=== PATIENT | female | born 1940 ===

== ENCOUNTER → 2017-08-01 | Outpatient (CLI) | payer MEDICARE ==
[~2017-08-01] MED LIST: AMLO1TAB95 PO; ASPI-482 PO; ATOR20TA PO; BYSTOLIC20 MG PO; CYCL5TAB PO; ESTR0.5T PO; HYDR-2758 PO; IOHEXOL 180 MG/ML 10 ML VIAL. ONE; LEVO150T PO; MELO7.5T29 PO; MULT-208 PO; OMEP20CA9 PO; VENL150C6 PO; methylPREDNISolone ACETATE 40 MG/ML VIAL. ONE; methylPREDNISolone ACETATE 80 MG/ML VIAL. ONE
--- NOTE | 2017-08-01 22:37 | PAIN ---
DATE OF SERVICE: 08/01/2017 INITIAL CONSULTATION CHIEF COMPLAINT: Low back and left lower extremity pain. HISTORY OF PRESENT ILLNESS: This is a 76-year-old female who presents with history of pain in the low back and left lower extremity for about 2 months now, increasing, not a result of any specific injury or accident that she is aware, but it is increasing with time. The patient had lumbar laminectomy in 2006 with similar symptoms at that time in her left lower extremity, but the patient reports the pain is now somewhat different. The pain has been increasing with activity, standing, walking, better with sitting. It is a constant pain, is throbbing, numbness and tingling sensation as well as radiating into the left posterior gluteus, posterolateral thigh, posterior calf and into the foot, but not into the toes on the left side only. The patient reports no significant pain in the right side, occasional some shooting pain in the right lateral thigh, but mostly just on the left side and in the leg and foot. The patient reports she had MRI scan on 07/05/2017 showing extensive severe multilevel spondylosis and central stenosis, most notably at L4-L5 as well as L3-L4 with near complete obliteration of the thecal sac due to severe facet spurring and posterior disk bulging, severe right neural foraminal stenosis and [id number] left neural foraminal stenosis at L4-L5. At L3-L4 shows severe central stenosis and severe thickening of ligamentum flavum with facet spur and near complete obliteration of the central spinal canal with severe marked central spinal canal stenosis and bilateral subarticular zone stenosis, severe medial right and severe medial left neural foraminal stenosis as well. The patient reports her disability rate from 0-10, 10 being the worst, it is an 8 with family and home responsibilities, recreation, social activity and 0 in other categories. The patient has tried hydrocodone, cyclobenzaprine and Meloxicam, which helped to moderate extent, but not anything that has taken the pain away completely. The patient has had physical therapy as well as chiropractic treatment and doing exercise currently, had some epidural injections many years ago before her surgery, which helped as well. PAST MEDICAL HISTORY: Significant for hypertension, gastroesophageal reflux, hypothyroidism, in 1980 had a melanoma which was excised surgically, and arthritis. PREVIOUS SURGERY: Include partial hysterectomy, bilateral cataract extractions, lumbar laminectomy in 2007, total thyroidectomy, breast reduction and melanoma excision, also appendectomy. CURRENT MEDICATIONS: Include Jos, Lipitor, Flexeril, meloxicam, hydrocodone, multivitamins daily, baby aspirin, Synthroid, estradiol, venlafaxine and Bystolic. ALLERGIES: The patient has no known drug allergies. FAMILY HISTORY: Significant for heart disease, cancers, and stroke. SOCIAL HISTORY: The patient does not smoke, does not drink alcohol, is , lives with her spouse and lives locally in [place], [place] and is currently retired. REVIEW OF SYSTEMS: The patient's review of systems is positive for those items mentioned in history of present illness. All systems are reviewed and otherwise negative. It is complete, full and well documented on the patient's chart. PHYSICAL EXAMINATION: VITAL SIGNS: The patient's blood pressure is 115/66, pulse , respirations 20, temperature 97.9 degrees Fahrenheit. Height is 5 feet 4 inches and weighs 206 pounds. GENERAL: The patient is awake, alert, oriented, appropriate, very pleasant demeanor. HEENT: Shows normocephalic, atraumatic. Extraocular movements are intact and symmetrical. Oral cavity shows mucous membranes moist and pink. Dentition is intact. NECK: Shows anterior throat supple without palpable lymphadenopathy noted. Swallow reflex is symmetrical. CHEST: Shows normal on inspection. Breath sounds are clear to auscultation bilaterally. HEART: Shows S1 and S2 clear. No murmurs auscultated. ABDOMEN: Soft, obese, nontender, nondistended. No palpable organomegaly is noted. No rebound or guarding demonstrated. BACK: Shows spine grossly midline. Normal appearing thoracic kyphosis and mild flattening of lumbar lordotic curvature. There is a well-healed surgical scar in the lumbar distribution. Lumbar paraspinous musculature shows symmetrical on inspection, with palpation shows some moderate tenderness with palpation in the middle and lower distribution of paraspinous muscles bilaterally, but without significant radiation, only diffusely tender without trigger points, no tenderness over the sacrum or sacroiliac regions. The patient shows full rotational motion of lumbar spine, both laterally as well as extension and flexion without significant difficulty. EXTREMITIES: Lower extremities show deep tendon reflexes at 1+ in the patellar and tendo calcaneus tendons and are equal. Motor exam is strong with 5/5 dorsiflexion, extension, quadriceps and hamstring flexion and symmetrical. Peripheral pulses are 1+ posterior tibial and dorsalis pedis pulses. No peripheral edema is noted. No clubbing, cyanosis. Lower extremities are warm and dry to touch, equal in color and appearance. The patient does have positive straight leg raise on the left at about 40 degrees, decreased with knee flexion, but not completely relieved. Right side is negative. Gaenslen's and Tj's maneuvers are negative bilaterally as well. The patient is able to stand, stand on her toes without difficulty or loss of balance and is walking with a normal-appearing gait, does not appear to favor the right or left lower extremity significantly and not using any assistive devices to ambulate on her visit today. IMPRESSION: 1. This is a 76-year-old female with about a 2-month history of increasing pain in low back, left lower extremity in radicular fashion. 2. MRI scan as noted. 3. Hypertension. 4. Arthritis. PLAN: Options were discussed with the patient including conservative medical management, physical therapy, interventional techniques and she would like to pursue interventional techniques and she is currently doing some therapies and exercises on her own. We discussed a lumbar epidural steroid injection in a caudal approach using description as well as anatomical models to describe the procedure. Risks were then discussed including, but not limited to bleeding, infection, possibility of epidural hematoma, subsequent neurologic compromise, dural puncture, headaches, spinal cord and/or nerve damage, side effects of steroid medication and poor results regarding pain control. The patient understands and wished to proceed. The patient will return to clinic in approximately 2 weeks for followup. She was counseled as to return appointment, activity level and side effects to be aware of. DIAGNOSES: Lumbar radiculopathy with lumbar spinal stenosis, degenerative disk disease and post-laminectomy syndrome. PROCEDURE: Lumbar epidural steroid injection, caudal approach. ANESTHETIC: Local anesthetic. DESCRIPTION OF PROCEDURE: Under sterile prep and drape using C-arm fluoroscopic guidance, medication injected, a total of 120 mg of Depo-Medrol plus 10 mL of preservative-free normal saline and 2 mL of Isovue for contrast. CONDITION AT DISCHARGE: Stable. The patient tolerated procedure well, had no complications. OLEGARIO JACKMAN MD DR: NAMRATA/katerin JOB#: [id number] / [id number]
== END | disposition home or self-care (01) ==
LOC: PNCL 09:13
PROVIDERS: ATTEND Anesthesiology
DX: M51.16 Intervertebral disc disorders with radiculopathy, lumbar region (principal); M48.06 Spinal stenosis, lumbar region; M96.1 Postlaminectomy syndrome, not elsewhere classified; I10 Essential (primary) hypertension; M19.91 Primary osteoarthritis, unspecified site; K21.9 Gastro-esophageal reflux disease without esophagitis; E03.9 Hypothyroidism, unspecified; Z98.41 Cataract extraction status, right eye; Z98.42 Cataract extraction status, left eye
CPT/HCPCS: 62323; J1030; J1040

== ENCOUNTER → 2017-08-15 | Outpatient (CLI) | payer MEDICARE ==
[~2017-08-15] MED LIST changes: -IOHEXOL 180 MG/ML 10 ML VIAL. ONE; -methylPREDNISolone ACETATE 40 MG/ML VIAL. ONE; -methylPREDNISolone ACETATE 80 MG/ML VIAL. ONE
--- NOTE | 2017-08-15 10:41 | PAIN ---
DATE OF SERVICE: 08/15/2017 DIAGNOSES: Lumbar radiculopathy with lumbar degenerative disk disease, lumbar spinal stenosis and post-lumbar laminectomy syndrome. HISTORY OF PRESENT ILLNESS: The patient is a 76-year-old female who returns for followup status post caudal approach epidural steroid injection x 1. The patient reports 100% improvement in her low back and leg pain, which she has had mostly on the left side. The patient reports this has almost completely resolved, still had very minor twinges over the past 1-2 days in the left low back and lower extremity. The patient reports it is burning and dull, off and on, very infrequent. The patient reports her pain as 0 on a scale of 10 currently, it is highest as a 4 on a scale of 10 over the last few days. She has been moving some boxes after she had recently moved to a new location and is still unpacking for that, is doing very well. The patient is very pleased to report by the next day after the shot, the pain was almost completely gone and continued to get better. The patient reports no new motor or sensory deficits, no new bowel or bladder incontinence. She is sleeping about 5 hours a night, but the pain does not awaken her from sleep. The patient reports no new changes or other complaints. PHYSICAL EXAMINATION: VITAL SIGNS: The patient's blood pressure 124/63, pulse 63, respirations are 16, temperature is 98.0 degrees Fahrenheit, weight is 206 pounds. GENERAL: The patient is awake, alert, oriented, appropriate, very pleasant demeanor. HEENT: Head shows normocephalic, atraumatic. The patient is wearing eyeglasses. Oral cavity: Mucous membranes moist and pink. Dentition is intact. NECK: Shows anterior throat supple without palpable lymphadenopathy noted. Swallow reflex is symmetrical. CHEST: Shows normal on inspection. Breath sounds are clear to auscultation bilaterally. HEART: Shows S1 and S2 clear. ABDOMEN: Soft, nontender, nondistended. No palpable organomegaly is noted. No rebound or guarding demonstrated. BACK: Shows spine grossly midline. Slight exaggeration of thoracic kyphosis, mild flattening of lumbar lordotic curvature is noted. Lumbar paraspinous musculature shows a well-healed surgical scar in the midline and laterally shows some mild tenderness to palpation but only diffusely and the low lumbar distribution is symmetrical. The patient shows good rotation and motion both laterally as well as extension and flexion without difficulty. EXTREMITIES: Lower extremities showed deep tendon reflexes, 1+ in the patellar and tendo calcaneus tendons. Motor exam is strong with 5/5 dorsiflexion, extension, quadriceps and hamstring flexion. Options were discussed with the patient. The patient's old chart was reviewed as her current medication regimen updated. Current review of systems is updated today as well and we will hold on any further injections as she is doing quite well and is very pleased with the results she has received from her first injection. We discussed that if the pain begins to return to contact us sooner than later, so that the pain does not get to the point it was previously, and the patient will do so. She will continue to increase her activity. We discussed stretching and strengthening exercises as well as continued and consistent activity with walking, standing, change in positions, etc. OLEGARIO JACKMAN MD DR: NAMRATA/katerin JOB#: [id number] / [id number]
== END | disposition home or self-care (01) ==
LOC: PNCL 09:06
PROVIDERS: ATTEND Anesthesiology
DX: M51.16 Intervertebral disc disorders with radiculopathy, lumbar region (principal); M48.06 Spinal stenosis, lumbar region
CPT/HCPCS: G0463

== ENCOUNTER → 2017-08-29 | Outpatient (CLI) | payer MEDICARE ==
[~2017-08-29] MED LIST changes: +IOHEXOL 180 MG/ML 10 ML VIAL. ONE; +methylPREDNISolone ACETATE 40 MG/ML VIAL. ONE; +methylPREDNISolone ACETATE 80 MG/ML VIAL. ONE
--- NOTE | 2017-08-29 09:26 | PAIN ---
DATE OF SERVICE: 08/29/2017 DIAGNOSES: Lumbar radiculopathy with lumbar degenerative disk disease and spinal stenosis and post-lumbar laminectomy syndrome. HISTORY OF PRESENT ILLNESS: The patient is a 76-year-old female who returns for followup status post caudal epidural steroid injection x 1 on 08/01/2017. The patient did very well with near 100% improvement to the point where we postponed any further injections. The patient reports the pain has been returning now over the past week or two in the low back and into the left greater than right lower extremities. The patient reports it is burning, aching, sharp beginning to become more noticeable with some numbness in her toes on the left foot as well as trying to get ahead before it gets worse. The patient reports it is an 8 on a scale of 10, worst is 7 on average, 3 on a scale of 10 at its least and it is 3 today. The patient reports it does not awaken her from sleep. She sleeps 6 hours a night, better with sitting down and lying down, worse with walking and standing, change in positions and ambulating as well as bending and standing at the lumbar spine. The patient reports no new motor or sensory deficits, no new bowel or bladder incontinence or other complaints. She has been increasing her walking as well as her household activities and work duties with greater ease and comfort, but again the pain returning now to a moderate extent in the low back and left leg. PHYSICAL EXAMINATION: VITAL SIGNS: Today, the patient's blood pressure is 136/77, pulse 69, respirations 20, temperature is 98.1 degrees Fahrenheit, weight is 208 pounds. GENERAL: The patient is awake, alert, oriented, appropriate, very pleasant demeanor. HEENT: Head shows normocephalic, atraumatic. Extraocular movements are intact, symmetrical. Oral cavity: Mucous membranes moist and pink. Dentition intact. NECK: Shows anterior throat supple without palpable lymphadenopathy noted. Swallow reflex is symmetrical. CHEST: Shows normal on inspection. Breath sounds are clear to auscultation bilaterally. HEART: Shows S1 and S2 clear. ABDOMEN: Soft, nontender, nondistended. No palpable organomegaly is noted, but obese. BACK: Shows spine grossly midline, well healed surgical scars noted in the lumbar distribution. Lumbar paraspinous musculature shows symmetrical on inspection. On palpation shows some [id number] tenderness bilaterally, but without radiation, without asymmetry. EXTREMITIES: Lower extremities showed deep tendon reflexes 1+ in the patellar and tendo calcaneus tendons are equal. Motor exam is strong with 5/5 dorsiflexion, extension and equal. Options were discussed with the patient and the patient's old chart was reviewed as her current medication regimen updated. Current review of systems updated today as well. We will proceed with a second in this series caudal approach epidural steroid injection with fluoroscopic guidance. Risks were again discussed including, but not limited to bleeding, infection, possibility of epidural hematoma, subsequent neurologic compromise, dural puncture, headaches, spinal cord and/or nerve damage, side effects of steroid medication and poor results regarding pain control. The patient understands and wishes to proceed. The patient will return to clinic in approximately 2 weeks for followup. She was counseled on return appointment, activity level and side effects to be aware of. OLEGARIO JACKMAN MD DR: NAMRATA/katerin JOB#: [id number] / [id number]
== END | disposition home or self-care (01) ==
LOC: PNCL 08:29
PROVIDERS: ATTEND Anesthesiology
DX: M51.16 Intervertebral disc disorders with radiculopathy, lumbar region (principal); M96.1 Postlaminectomy syndrome, not elsewhere classified
CPT/HCPCS: 62323; J1030; J1040

== ENCOUNTER → 2017-09-12 | Outpatient (CLI) | payer MEDICARE ==
[~2017-09-12] MED LIST changes: -IOHEXOL 180 MG/ML 10 ML VIAL. ONE; -methylPREDNISolone ACETATE 40 MG/ML VIAL. ONE; -methylPREDNISolone ACETATE 80 MG/ML VIAL. ONE
--- NOTE | 2017-09-12 15:33 | PAIN ---
DATE OF SERVICE: 09/12/2017 DIAGNOSES: Lumbar radiculopathy, lumbar degenerative disk disease, lumbar spinal stenosis and post-lumbar laminectomy syndrome. HISTORY OF PRESENT ILLNESS: The patient is a 76-year-old female who returns for followup status post caudal epidural steroid injections x 2. The patient reports about 100% improvement after the first injection. We had waited for the second injection, but it is not significantly improved after the second injection, approximately 50%, only lasted for about 2 weeks. The patient reports pain is back like it was in the low back, bilateral lower extremities, posterior gluteus, posterior thighs, and to the calves, some extent in the back of the knee. The patient reports it has been more noticeable with activity. It is a constant, severe pain becoming burning, sharp and dull as well as rates 9 on a scale of 10 at its worst, 8 on average and 5 at its least on a scale of 5 today. The patient reports it wakes her from sleep about 5-6 hours at night. Every 5-6 hours, she has to reposition but she can easily get back to sleep and again it has been worse over the past week or two. The patient reports no new motor or sensory deficits, but still significant pain in the low back, bilateral lower extremities as previously. PHYSICAL EXAMINATION: VITAL SIGNS: The patient's blood pressure is 137/71, pulse 72, respirations 16, temperature is 97.8 degrees Fahrenheit, weight is 210 pounds. GENERAL: The patient is awake, alert, oriented, appropriate, very pleasant demeanor. HEENT: Head shows normocephalic, atraumatic. Extraocular movements are intact and symmetrical. Oral cavity, mucous membranes are moist and pink. Dentition is intact. NECK: Shows anterior throat supple. Swallow reflex is symmetrical. CHEST: Shows normal on inspection. Breath sounds are clear to auscultation bilaterally. HEART: Shows S1 and S2 clear. ABDOMEN: Soft, nontender, nondistended. No palpable organomegaly. No rebound or guarding demonstrated. BACK: Shows spine grossly midline. Well healed surgical scar is noted in the lumbar distribution. Lumbar paraspinous musculature is symmetrical, was firm on palpation and moderately tender throughout the upper, middle and lower distribution of paraspinous muscles. No radiation of pain, no trigger points, no tenderness over the sacrum or sacroiliac regions. EXTREMITIES: Lower extremities showed deep tendon reflexes 1+ in the patellar and tendo calcaneus tendons are equal. Motor exam is approximately 5 on a scale of 5 with dorsiflexion, extension. Quadriceps and hamstring flexion are symmetrical. Peripheral pulses are 1+ posterior tibial. No peripheral edema is noted bilaterally. Options were discussed with the patient. The patient's old chart was reviewed as her current medication regimen updated. Current review of systems updated today as well. We will hold on further injections by her choice. She would like to wait on this as she has some company coming and would like to wait until she is close to the holidays to have her third injection. We discussed some other options such as activity, physical therapy and water therapy. She is interested in this and would like to wait again until closer to the holidays before starting these. We will have that available for her as well. I encouraged her to increase her activity, walking and stretching, which she has been doing and to do this as much as possible and as tolerated. Also, try Medrol Dosepak with instructions, side effects to be aware of discussed and hydrocodone. The patient is taking it so forth with good results. We did discuss potential side effects, especially constipation with the medication. She is aware of this and will follow instructions as well with medications as outlined. The patient will follow up in approximately 4 weeks and we will plan on third caudal epidural steroid injection at that time. OLEGARIO JACKMAN MD DR: NAMRATA/katerin JOB#: [id number] / [id number]
== END | disposition home or self-care (01) ==
LOC: PNCL 09:41
PROVIDERS: ATTEND Anesthesiology
DX: M51.16 Intervertebral disc disorders with radiculopathy, lumbar region (principal); M48.061 Spinal stenosis, lumbar region without neurogenic claudication; K59.00 Constipation, unspecified
CPT/HCPCS: G0463

== ENCOUNTER → 2017-10-23 | Outpatient (CLI) | payer MEDICARE ==
[~2017-10-23] MED LIST changes: +IOHEXOL 180 MG/ML 10 ML VIAL. ONE; +methylPREDNISolone ACETATE 40 MG/ML VIAL. ONE; +methylPREDNISolone ACETATE 80 MG/ML VIAL. ONE
--- NOTE | 2017-10-23 22:33 | PAIN ---
DATE OF SERVICE: 10/23/2017 DIAGNOSES: Lumbar radiculopathy with lumbar spinal stenosis, degenerative disk disease and post-lumbar laminectomy syndrome. HISTORY OF PRESENT ILLNESS: The patient is a 76-year-old female who returns for a followup status post caudal approach epidural steroid injections x 2. The patient reports approximately 50% improvement overall in the low back and left lower extremity. The patient reports still significant pain that returning after last injection, which was on 09/12. The patient had recently moved to another house and has been unpacking items and having some significant pain with bending, flexing, standing and walking. The patient reports it is better with sitting or lying down. Does not awaken her from sleep at night. Reports pain as a 9 on a scale 10 at its worst, 9 on average and 4 at its least and is a 5 today. The patient reports it is burning, aching, sharp and constant in the low back region, the posterior gluteus, posterior thigh, posterior calf and into the lateral calf on the left side only. The patient reports no new motor or sensory deficits, no new bowel or bladder incontinence or other complaints. PHYSICAL EXAMINATION: VITAL SIGNS: The patient's blood pressure is 132/81, pulse 83, respirations 18, temperature 98.0 degrees Fahrenheit. Height is 5 feet 4 inches, weight is 214 pounds. GENERAL: The patient is awake, alert, oriented, appropriate, very pleasant demeanor. HEENT: Shows normocephalic, atraumatic. Extraocular muscles are intact and symmetrical. Oral cavity shows mucous membranes are moist and pink. Dentition is intact. NECK: Shows anterior throat supple without palpable lymphadenopathy noted. Swallow reflex is symmetrical. CHEST: Shows normal with inspection. Breath sounds are clear to auscultation bilaterally. HEART: Shows S1, S2 clear. No murmurs auscultated. ABDOMEN: Soft, nontender, nondistended. No palpable organomegaly is noted. No rebound or guarding demonstrated. MUSCULOSKELETAL: Back shows spine grossly in the midline. The patient's lumbar paraspinous musculature shows symmetrical with inspection. Well-healed surgical scar is noted. With palpation shows moderate tenderness in the lower lumbar distribution bilaterally, but only diffusely without radiation. The patient has good rotational motion both laterally as well as extension and flexion without difficulty. Lower extremities show deep tendon reflexes 1+ in the patellar and tendo-calcaneus tendons. Motor exam is strong with 5/5 dorsiflexion, extension, quadriceps and hamstring flexion and equal. Peripheral pulses are 1+ posterior tibia. No peripheral edema is noted bilaterally. PLAN: Options were discussed with the patient. The patient's old chart was reviewed as her current medication regimen and updated. Current review of systems updated today as well. We will proceed with a third in the series caudal approach epidural steroid injection today with fluoroscopic guidance. Risks were again discussed including, but not limited to bleeding, infection, possibility of epidural hematoma and subsequent neurological compromise, dural puncture headache, spinal cord and/or nerve damage, side effects of steroid medication and poor results regarding pain control. The patient understands and wished to proceed. The patient will return to the clinic in approximately 2 weeks for a followup, was counseled on return appointment, activity level and side effects to be aware of. DIAGNOSES: Persistent lumbar radiculopathy with lumbar spinal stenosis, degenerative disk disease and post-lumbar laminectomy syndrome. PROCEDURE: Lumbar epidural steroid injection, caudal approach, using C-arm fluoroscopic guidance under sterile prep and drape using local anesthetic. MEDICATIONS INJECTED: A total of 120 mg of Depo-Medrol plus 10 mL of preservative-free normal saline and 2 mL of Isovue for contrast. CONDITION AT DISCHARGE: Stable. The patient tolerated the procedure well, had no complications. OLEGARIO JACKMAN MD DR: NAMRATA/katerin JOB#: [id number] / [id number]
== END ==
LOC: PNCL 09:19
PROVIDERS: ATTEND Anesthesiology
DX: M51.16 Intervertebral disc disorders with radiculopathy, lumbar region (principal); M48.061 Spinal stenosis, lumbar region without neurogenic claudication; M96.1 Postlaminectomy syndrome, not elsewhere classified
CPT/HCPCS: 62323; J1030; J1040

== ENCOUNTER → 2018-01-29 | Outpatient (CLI) | payer MEDICARE ==
[2018-01-29 10:45] LABS: ADD MAN DIFF? NO
[2018-01-29 10:51] LABS: BASO # 0.1 x10^3/uL (0.0-0.2); BASO % 1 % (0-3); EOS # 0.2 x10^3/uL (0.0-0.7); EOS % 3 % (0-3); HEMATOCRIT 39.3 % (36.0-47.0); HEMOGLOBIN 13.3 g/dL (12.0-15.5); LYMPH # 2.4 x10^3/uL (1.0-4.8); LYMPH % 33 % (24-48); MEAN CORPUSCULAR HEMOGLOBIN 30 pg (25-35); MEAN CORPUSCULAR HGB CONC 34 g/dL (31-37); MEAN CORPUSCULAR VOLUME 89 fL (79-100); MONO # 0.6 x10^3/uL (0.0-1.1); MONO % 8 % (0-9); NEUT # 3.9 x10^3uL (1.8-7.7); NEUT % 55 % (31-73); PLATELET COUNT 288 x10^3/uL (140-400); RED CELL DISTRIBUTION WIDTH 13.1 % (11.5-14.5); WHITE BLOOD COUNT 7.1 x10^3/uL (4.0-11.0)
[2018-01-29 11:03] LABS: ALBUMIN 3.4 g/dL (3.4-5.0); ALK PHOS 104 U/L (46-116); ALT (SGPT) 31 U/L (14-59); ANION GAP 12 (6-14); AST (SGOT) 21 U/L (15-37); BLOOD UREA NITROGEN 17 mg/dL (7-20); BUN/CREATININE RATIO 17 (6-20); CALCIUM 8.9 mg/dL (8.5-10.1); CARBON DIOXIDE 23 mmol/L (21-32); CHLORIDE 104 mmol/L (98-107); GFR 53.9; GLUCOSE 102 mg/dL (70-99); POTASSIUM 4.2 mmol/L (3.5-5.1); SODIUM 139 mmol/L (136-145); TOTAL BILIRUBIN 0.2 mg/dL (0.2-1.0); TOTAL PROTEIN 6.7 g/dL (6.4-8.2)
[2018-01-30 03:18] LABS: MRSA BY PCR Negative (Negative)
== END | disposition home or self-care (01) ==
LOC: SURGPAT 09:51
DX: Z01.818 Encounter for other preprocedural examination (principal); M51.16 Intervertebral disc disorders with radiculopathy, lumbar region; I45.10 Unspecified right bundle-branch block; R94.31 Abnormal electrocardiogram [ECG] [EKG]
CPT/HCPCS: 36415; 80053; 85025; 87641; 93005